=== PATIENT | male | born 1960 | race Caucasian/White ===

== ENCOUNTER 2019-12-05 15:32 | Emergency (ER) | payer BC ==
[~2019-12-05] VITALS: Ht 167.6 cm; Wt 70.3 kg
[2019-12-05 15:33] VITALS: BP 111/78
[2019-12-05] MEDS ORDERED: IBUPROFEN 600 MG TAB PO ONE (15:45)
--- NOTE | 2019-12-05 16:05 | NUR ---
PT AMBULATEED TO ER BED 7
--- NOTE | 2019-12-05 16:20 | NUR ---
X-Ray at bedside.
--- NOTE | 2019-12-05 16:27 | NUR ---
59 y/o male from home c/o chest pain that radiates to back since yesterday morning. States 2/10 pain. Denies N/V/D. Denies SOB/cough. RR even and unlabored. Skin warm, dry, and intact. Positioned for comfort. VSS medhx: htn
--- NOTE | 2019-12-05 16:28 | NUR ---
Lab at bedside for blood draw
[2019-12-05 16:40] LABS: EOSINOPHILS % (AUTO) 0.2 % (0.0-4.0); HEMATOCRIT 41.1 % (36-52); HEMOGLOBIN 14.7 g/dL (12.0-18.0); LYMPHOCYTES # (AUTO) 0.4 K/uL (2.0-11.5); LYMPHOCYTES % (AUTO) 2.8 % (20.5-51.1); MEAN CORPUSCULAR HEMOGLOBIN 32 pg (27-31); MEAN CORPUSCULAR HGB CONC 36 g/dL (33-37); MEAN CORPUSCULAR VOLUME 89.4 fL (80-94); MONOCYTES # (AUTO) 0.5 K/uL (0.8-1.0); MONOCYTES % (AUTO) 3.1 % (1.7-9.3); NEUTROPHILS % (AUTO) 93.9 % (42.2-75.2); PLATELET COUNT (AUTO) 134 K/uL (140-450); WHITE BLOOD COUNT (AUTO) 14.9 K/uL (4.8-10.8)
[2019-12-05 16:56] LABS: ALBUMIN 3.6 g/dL (3.4-5.0); ANION GAP 12.1 (8-16); CARBON DIOXIDE 24.5 mmol/L (21-32); POTASSIUM 3.6 mmol/L (3.5-5.1); TOTAL BILIRUBIN 6.1 mg/dL (0.0-1.0)
[2019-12-05 17:23] VITALS: BP 114/71
--- NOTE | 2019-12-05 17:24 | NUR ---
Patient discharged with v/s stable. Written and verbal after care instructions given and explained. Patient alert, oriented and verbalized understanding of instructions. Ambulatory with steady gait. All questions addressed prior to discharge. ID band removed. Patient advised to follow up with PMD. Rx of Flexeril 5mg given. Patient educated on indication of medication including possible reaction and side effects. Opportunity to ask questions provided and answered.
== END 2019-12-05 17:24 | disposition home or self-care (01) ==
LOC: MED 15:32
DX: S39.012A Strain of muscle, fascia and tendon of lower back, initial encounter (principal); I10 Essential (primary) hypertension; X50.0XXA Overexertion from strenuous movement or load, initial encounter; Y93.89 Activity, other specified; Y92.89 Other specified places as the place of occurrence of the external cause; Y99.8 Other external cause status
CPT/HCPCS: 36415; 71045; 80053; 84484; 85025; 93005; 99285; Q0092